=== PATIENT | male | born 1980 | race Caucasian/White ===

== ENCOUNTER 2021-11-21 05:41 | Emergency (ER) | payer OTHER ==
[~2021-11-21] VITALS: Ht 182.8 cm; Wt 77.0 kg
[2021-11-21] MEDS ORDERED: ONDANSETRON 4 MG (ZOFRAN) ORAL DISSOLVE TAB SL ONE (06:30)
[2021-11-21] MEDS ORDERED: IBUPROFEN TABLET 200 MG TAB PO ONE (06:30)
--- NOTE | 2021-11-21 06:33 | ED General ---
General Chief Complaint: COVID19 Suspect/Confirmed Stated Complaint: HIGH BP,HEADACHE,NAUSEA Nursing Triage Note: TO ED VIA POV AND AMBULATORY TO ROOM 9 WITH C/O H/A SINCE YESTERDAY. TOOK BABY ASA AND IBUPROFEN YESTERDAY. STATES HIS BOSS TESTED POSITIVE FOR COVID, "BUT WE AREN'T AROUND EACH OTHER THAT MUCH IN THE OFFICE". HAS BEEN CIPRO FOR 2 WEEKS FOR TULAREMIA. Source of Information: Patient Exam Limitations: No Limitations History of Present Illness Date Seen by Provider: Nov 21, 2021 Time Seen by Provider: 05:59 Initial Comments This 41-year-old gentleman presents to the emergency room by private vehicle with complaints of flulike symptoms since yesterday including arthralgia, head ache, neck soreness, fever, racing heart and nausea. He is febrile and tachycardic. He took aspirin and ibuprofen yesterday. He reports being able to hydrate reasonably well. He is also on the second week of treatment for tularemia with Cipro. He reports good compliance with this course of treatment. He had a positive exposure to COVID-19 from his employer. Allergies and Home Medications Allergies Coded Allergies: No Known Drug Allergies (Unverified , 11/12/15) Patient Home Medication List Home Medication List Reviewed: Yes No Active Prescriptions or Reported Meds Review of Systems Review of Systems Constitutional: see HPI EENTM: no symptoms reported Respiratory: no symptoms reported Cardiovascular: see HPI Gastrointestinal: see HPI Genitourinary: no symptoms reported Musculoskeletal: see HPI Skin: no symptoms reported Psychiatric/Neurological: See HPI Hematologic/Lymphatic: No Symptoms Reported Immunological/Allergic: no symptoms reported Past Fcxdiyb-Lnoocw-Yuuxjz Hx Patient Social History Tobacco Use?: No Substance use?: No Alcohol Use?: Yes Alcohol Frequency: Once in a while Past Medical History Surgeries: No Respiratory: No Cardiac: No Neurological: Yes (Arachnoid cyst) Reproductive Disorders: No HIV/AIDS: No Genitourinary: No Gastrointestinal: No Musculoskeletal: Yes Scoliosis Endocrine: No HEENT: No Cancer: No Psychosocial: No Integumentary: No Blood Disorders: Yes (History of tularemia x2) Physical Exam Vital Signs Vital Signs - First Documented 11/21/21 05:50 Temp 37.8 Pulse 111 Resp 16 B/P (MAP) 112/89 (97) Pulse Ox 93 O2 Delivery Room Air Capillary Refill : Less Than 3 Seconds Height, Weight, BMI Height: 5'9" Weight: 175lbs. oz. 79.197395nw; 23.00 BMI Method:Estimated General Appearance: No Apparent Distress, WD/WN HEENT: PERRL/EOMI, TMs Normal, Normal ENT Inspection, Pharynx Normal Neck: Normal Inspection, Other (No nuchal rigidity) Respiratory: Lungs Clear, Normal Breath Sounds, No Accessory Muscle Use, No Respiratory Distress Cardiovascular: No Edema, No Murmur, Tachycardia Gastrointestinal: Normal Bowel Sounds, No Organomegaly, Soft Extremity: Normal Inspection, No Pedal Edema Neurologic/Psychiatric: Alert, Oriented x3, No Motor/Sensory Deficits, Normal Mood/Affect, director health II-XII Norm as Tested Skin: Normal Color, Warm/Dry Progress/Results/Core Measures Suspected Sepsis SIRS Temperature: Pulse: 111 Respiratory Rate: 16 Blood Pressure 112 /89 Mean: 97 Results/Orders Lab Results Laboratory Tests Test 11/21/21 05:52 Range/Units SARS-CoV-2 RNA (RT-PCR) Detected H Not Detecte My Orders Orders - ALDAIR WEBB MD Ibuprofen Tablet (Motrin Tablet) (11/21/21 06:30) Ondansetron Oral Dissolve Tab (Zofran (11/21/21 06:30) Ibuprofen Tablet (Motrin Tablet) (11/21/21 06:45) Medications Given in ED Current Medications Medications Dose Ordered Sig/Cl Route Start Time Stop Time Status Last Admin Dose Admin Ibuprofen 600 mg ONCE ONCE PO 11/21/21 06:45 11/21/21 06:46 11/21/21 06:37 600 MG Ondansetron HCl 8 mg ONCE ONCE SL 11/21/21 06:30 11/21/21 06:31 DC 11/21/21 06:35 8 MG Vital Signs/I&O 11/21/21 05:50 Temp 37.8 Pulse 111 Resp 16 B/P (MAP) 112/89 (97) Pulse Ox 93 O2 Delivery Room Air Capillary Refill : Less Than 3 Seconds Blood Pressure Mean: 97 Progress Note : Progress Note Patient was given ibuprofen and Zofran to treat his symptoms. COVID-19 test returned positive. Patient is not a day high risk category that would qualify him for therapeutic treatments. Departure Impression Primary Impression: COVID-19 Additional Impression: Nausea Disposition: 01 HOME, SELF-CARE Condition: Improved Departure-Patient Inst. Decision time for Depature: 06:46 Referrals: ABNER VERA DO (PCP/Family) Primary Care Physician Patient Instructions: COVID-19 Overview Add. Discharge Instructions: Remain in quarantine for 5 days from the first full day of symptoms. You may come out of quarantine after 5 days from the first full day of symptoms if you are major symptoms have resolved. Then mask for an additional 5 days when around others. Drink plenty of clear liquids to stay well-hydrated and eat a well-balanced diet. You may take a multivitamin. Some clinicians advocate for extra vitamin C, vitamin D, zinc, or supplements such as elderberry during COVID-19. These schreiber pplements are acceptable as long as you do not exceed recommended daily doses. Remain active with moving about the house or walking outside. Change positions frequently when at rest. Exercise deep breathing often. Check your oxygen saturation a couple times a day or anytime you feel increased shortness of breath. Return to the ER if you have multiple measurements less than 92% or any measurements under 90%. Use the Zofran (ondansetron) as prescribed for nausea or vomiting. Call with questions or concerns. Return to the ER if you have any other significant medical issues that require urgent attention. Follow CDC guidelines and employer policies regarding return to work. All discharge instructions reviewed with patient and/or family. Voiced understanding. Scripts Ondansetron (Ondansetron Odt) 4 Mg Tab.rapdis 4 MG SL Q4H PRN for NAUSEA/VOMITING, #10 TAB Prov: ALDAIR WEBB MD 11/21/21 Work/School Note: Work Release Form Date Seen in the Emergency Department: Nov 21, 2021 Return to Work: Nov 26, 2021 Other Restrictions Listed Below: 5 full days of quarantine from first full day of symptoms. Mask additional Restrictions: Must not have any major symptoms to return. Mask additional 5 days. ALDAIR WEBB MD Nov 21, 2021 06:33
[2021-11-21] MEDS ORDERED: IBUPROFEN 600 MG (MOTRIN) TAB PO ONE (06:45)
[2021-11-21] MEDS ORDERED: ONDA4TAB11 SL (06:47)
[2021-11-21 06:52] VITALS: BP 126/74
== END 2021-11-21 07:00 | disposition home or self-care (01) ==
LOC: EDUNIT# 05:41 → ER 05:43
DX: U07.1 COVID-19 (principal); R11.0 Nausea; Z28.310 Unvaccinated for COVID-19
CPT/HCPCS: 87636; 99283